=== PATIENT | male | born 1980 | race Caucasian/White ===

== ENCOUNTER 2021-01-22 14:02 | Outpatient (REF) | payer OTHER, SELFPAY ==
--- NOTE | ~2021-01-22 | XR_ITS ---
EXAMINATION: XR LUMBOSACRAL SPINE CLINICAL INFORMATION: Lower back pain. COMPARISON: None TECHNIQUE: AP and lateral views of the lumbar spine and lateral view of the lumbosacral junction. FINDINGS: The vertebral bodies and posterior elements are normal. At L5-S1, there is a 4 mm retrolisthesis and very mild disc space narrowing. The remaining disc spaces are preserved, and the vertebral alignment is normal. The paraspinal soft tissues are normal. XR/XR lumbar spine 2-3V IMPRESSION: Findings consistent with mild degenerative disc disease at L5-S1.
== END 2021-01-22 14:03 | disposition home or self-care (01) ==
LOC: HO.XRAY 14:02
PROVIDERS: PCP Internal Medicine; Visit Provider Internal Medicine
DX: M54.5 Low back pain (principal)
CPT/HCPCS: 72100

== ENCOUNTER 2021-02-04 11:05 | Outpatient (REF) | payer OTHER, SELFPAY ==
[2021-02-04 12:22] LABS: MANUAL DIFF FLAG NO
[2021-02-04 12:27] LABS: Basophils Percent Auto 0.4 % (0-2); Eosinophils Absolute Auto 0.1 X10*3/uL (0.0-0.4); Imm Gran Abs Auto 0.02 X10*3/uL (0.00-0.03); Imm Gran Pct Auto 0.3 % (0.0-0.4); Lymphocytes Percent Auto 38.8 % (20-40); Mean Corpuscular Hemoglobin 29.6 pg (27.0-33.0); Mean Platelet Volume 10.6 fL (9.4-12.4); Monocytes Absolute Auto 0.4 X10*3/uL (0.1-1.2); Monocytes Percent Auto 5.4 % (2-11); Neutrophils Absolute Auto 4.2 X10*3/uL (2.0-8.3); Neutrophils Percent Auto 54.1 % (45-73); Platelet Count 227 X10*3/uL (160-400); Red Blood Count 5.75 X10*6/uL (4.60-5.80); Red Cell Distribution Width 13.1 % (11.0-16.0); White Blood Count 7.8 X10*3/uL (4.8-10.8)
[2021-02-04 12:46] LABS: Glucose Urine UA NEG (NEG); Leukocyte Esterase Urine NEG (NEG); Nitrite Urine NEG (NEG); PH 6.5 (5.0-8.0); Specific Gravity - Urine 1.015 (1.005-1.025); Urine Blood NEG (NEG); Urine Ketones NEG (NEG); Urine Protein TRACE MG/DL (NEG-TRACE)
[2021-02-04 12:49] LABS: Appearance Urine CLEAR; Color Urine YELLOW
[2021-02-04 13:29] LABS: Erythrocyte Sedimentation Rate 2 MM/HR (0-15)
[2021-02-04 13:50] LABS: Alanine Aminotransferase 54 U/L (0-40); Albumin Level 4.5 g/dL (3.5-5.0); Alkaline Phosphatase 86 U/L (39-117); Anion Gap 12 (12-20); Aspartate Amino Transferase 36 U/L (5-37); Bilirubin Total 0.7 mg/dL (0.0-1.0); Blood Urea Nitrogen 14 mg/dL (9-16); Calcium 10.1 mg/dL (8.4-10.2); Carbon Dioxide 28 mmol/L (22-29); Chloride 104 mmol/L (96-108); Cholesterol 288 mg/dL; Estimated Glomerular Filt Rate 57; Glucose Random 91 mg/dL (60-115); Potassium 4.2 mmol/L (3.3-5.1); Sodium 140 mmol/L (135-145); Total Protein 7.4 g/dL (6.5-8.0)
[2021-02-04 14:01] LABS: TSH reflex Free T4 1.76 uIU/mL (0.32-4.0); Vitamin D 25-OH Total 19.7 ng/mL (>30)
== END 2021-02-04 11:06 | disposition home or self-care (01) ==
LOC: HO.LAB 11:05
PROVIDERS: PCP Internal Medicine; Visit Provider Internal Medicine
DX: Z00.00 Encounter for general adult medical examination without abnormal findings (principal); E66.3 Overweight; M54.5 Low back pain; E55.9 Vitamin D deficiency, unspecified
CPT/HCPCS: 36415; 80053; 81003; 82306; 82465; 84443; 85025; 85652

== ENCOUNTER 2023-08-18 09:10 | Outpatient (AMB) | payer BC, MEDICAID, SELFPAY ==
--- NOTE | 2023-08-18 11:51 | MHC.OFFWIV ---
Intake Vital Signs 08/18/23 11:56 Height 5 ft 11 in Weight 202 lb 3 oz BMI 28.2 BP 132/86 Blood Pressure Location Lt brachial Position Sitting Pulse 69 Pulse Source Pulse Oximeter Temp 98.3 F Temp Source Oral Pulse Oximetry (%) 96 Oxygen Delivery Method Room Air Intake Visit Reasons: EP, urgency with urination Intake Note: pt is here today for urgency with urination started 2 days ago with a little burning, drinking water with little urine output, feels like he has to go a lot, but only a urine comes out. Patient Tobacco Use Status: Former Tobacco user Allergies Penicillins [PENICILLINS] Allergy (Unknown, Verified 08/18/23 12:27) RASH Medication List - Last Reconciled 08/18/23 by Jf Martines MD No Known Home Meds Do you need a note to return to daycare/school/sports/work: No HPI EP, urgency with urination HPI Details 43-year-old male presents to the office for a sick visit. Patient is reporting nonspecific abdominal pain. Mostly in the groin area. He was seen at another walk-in and diagnosed with constipation 2 days ago. Patient reports he now has bowel movements, continues to have mild pain in the groin area. He is urinating small quantities. No fevers or chills. FORMERLY [facility], [facility] Medical History (Updated 01/24/21 @ 14:15 by Rashaun Murphy MD) Marijuana smoker Overweight (BMI 25.0-29.9) Low back pain Surgical History (Updated 01/24/21 @ 14:10 by Rashaun Murphy MD) No significant past surgical history Family History Maternal Grandmother Diabetes mellitus Paternal Grandmother Diabetes mellitus Social History (Updated 01/24/21 @ 14:15 by Rashaun Murphy MD) Alcohol intake: current Alcohol intake frequency: a few times a week Alcohol type: beer Patient Tobacco Use Status: Former Tobacco user Tobacco use type: Cigarette Substance Use Type: Marijuana Physical Exam Vital Signs: Last Vital Signs Temp 98.3 F 08/18/23 11:56 Pulse 69 08/18/23 11:56 BP 132/86 08/18/23 11:56 Pulse Ox 96 08/18/23 11:56 Oxygen Delivery Method Room Air 12/22/23 11:56 BMI result Body Mass Index 28.2 Const General: cooperative and healthy appearing Nutritional Appearance: well nourished Orientation/consciousness: patient oriented x3 Limitations: no limitations HEENT Head: Yes normal to inspection Eyes General: appearance normal, both eyes and all related structures Neck Neck: Yes normal visual inspection Chest Chest palpation & inspection: normal palpation of entire chest wall Resp Effort & Inspection: normal respiratory effort Neuro General: patient oriented x3 Results AMB Urinalysis, Automated UA Leukoctes 0 Chidi/uL Last Edit by Madelin Manriquez CMA on 08/18/23 11:54 UA Nitrite Negative Last Edit by Madelin Manriquez CMA on 08/18/23 11:54 UA Urobilinogen 0.2 mg/dL Last Edit by Madelin Manriquez CMA on 08/18/23 11:54 UA Protein 0 mg/dL Last Edit by Madelin Manriquez CMA on 08/18/23 11:54 UA pH 6.0 Last Edit by Madelin Manriquez CMA on 08/18/23 11:54 UA Blood 0 Maximo/uL Last Edit by Madelin Manriquez CMA on 08/18/23 11:54 UA Specific [place] 1.030 Last Edit by Madelin Manriquez CMA on 08/18/23 11:54 UA Ketone Negative Last Edit by Madelin Manriquez CMA on 08/18/23 11:54 UA Bilirubin 0 mg/dL Last Edit by Madelin Manriquez CMA on 08/18/23 11:54 UA Glucose 0 mg/dL Last Edit by Madelin Manriquez CMA on 08/18/23 11:54 Results Reviewed Results Reviewed: Laboratory Last Values Urine pH (Auto) 6.0 08/18/23 11:51 Specific [place] (Auto) 1.030 08/18/23 11:51 Urine Protein (Auto) 0 mg/dL 08/18/23 11:51 Glucose (UA)(Auto) 0 mg/dL 08/18/23 11:51 Urine Ketones (Auto) Negative 08/18/23 11:51 Urine Blood (Auto) 0 Maximo/uL 08/18/23 11:51 Urine Nitrite (Auto) Negative 08/18/23 11:51 Urine Bilirubin (Auto) 0 mg/dL 08/18/23 11:51 Urine Urobilinogen (Auto) 0.2 mg/dL 08/18/23 11:51 Leukocyte Esterase (Auto) 0 Chidi/uL 08/18/23 11:51 Assessment & Plan Assessment & Plan (1) Abdominal pain: Code(s): R10.9 - Unspecified abdominal pain Plan: Nonspecific abdominal pain is the only symptom. Urinalysis is negative. Physical exam is unremarkable. Will observe the patient. If symptoms worsen, patient was instructed to follow-up here. Orders: Orders AMB Urinalysis Automated Today R30.0 - Dysuria Coding Level of Care Code Est Pt Level 3 (48973) Diagnoses Abdominal pain R10.9
[2023-08-18 11:56] VITALS: BP 132/86; PULSE 69; TEMP 36.8; O2SAT 96; BMI 28.2
== END 2023-08-18 13:09 | disposition home or self-care (01) ==
PROVIDERS: PCP Internal Medicine; Visit Provider Internal Medicine
DX: R10.9 Unspecified abdominal pain (principal); R30.0 Dysuria
CPT/HCPCS: 81003; 99213

== ENCOUNTER 2023-11-30 10:08 | Outpatient (AMB) | payer BC, MEDICAID, SELFPAY ==
[2023-11-30 10:10] VITALS: BP 120/64; PULSE 63; O2SAT 98; BMI 29.0
--- NOTE | 2023-11-30 10:10 | A.OFFPC_ITS ---
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 Accompanied by: Significant Other Allergies Penicillins [PENICILLINS] Allergy (Unknown, Verified 03/12/24 11:52) RASH Medication List - Last Reconciled 11/30/23 by Rashaun Murphy MD No Known Home Meds Tobacco use date assessed: 11/30/23 Dental Screening Dental Screen Date: 11/30/23 Did you have a dental visit in the last 12 months?: Yes Did you have a dental problem in the last 6 months where you did not have access to dental care?: No Was dental information given to patient?: Patient has dentist HPI Physical Exam HPI Details Patient comes in today for his annual physical examination - was last seen by me over 2 years ago on 01/22/2021 Patient states that he feels okay He denies any headaches or dizziness Denies any chest pains, no SOB No nausea/vomiting, reports (+) on and off vague/mild diffuse abdominal pain and discomfort, more often over the RLQ area No change in bowel habits noted He denies any acute urinary symptoms [facility] Medical History (Updated 03/12/24 @ 12:12 by Rashaun Murphy MD) Lumbar degenerative disc disease Vitamin D deficiency Impaired fasting glucose Elevated LFTs Mixed hyperlipidemia Marijuana smoker Overweight (BMI 25.0-29.9) Low back pain Surgical History No significant past surgical history Family History Maternal Grandmother Diabetes mellitus Paternal Grandmother Diabetes mellitus Social History Housing: Apartment Alcohol intake: current Alcohol intake frequency: a few times a week Alcohol type: beer Patient Tobacco Use Status: Former Tobacco user Tobacco use type: Cigarette e-Cigarette/Vaping Use: Never Used Second Hand Smoke Exposure: Yes Substance Use Type: Marijuana service: No Current occupational status: employed Cognitive needs: No Hearing needs: No Vision needs: No Questionnaire PHQ-9 Over the last 2 weeks, how often have you been bothered by any of the following problems? 1. Little interest or pleasure in doing things: not at all 2. Feeling down, depressed, or hopeless: not at all 3. Trouble falling or staying asleep, or sleeping too much: not at all 4. Feeling tired or having little energy: not at all 5. Poor appetite or overeating: not at all 6. Feeling bad about yourself - or that you are a failure or have let yourself or your family down: not at all 7. Trouble concentrating on things, such as reading the newspaper or watching television: not at all 8. Moving or speaking so slowly that other people could have noticed. Or the opposite - being so fidgety or restless that you have been moving around a lot more than usual: not at all 9. Thoughts that you would be better off or of hurting yourself in some way: not at all Total score: 0 Depression Screening Interpretation: Negative Depression Screening Done: Yes 59418 - PHQ-9 Billing: Yes Source: Developed by Drs. Alexy Mayberry, Roro Fair, Chato Veras and colleagues, with an educational ralph from [employer]. Thrive Questionnaire Date Thrive assessed: 11/30/23 I am a: Patient What is your living situation today?: I have a steady place to live Within the past 12 months, did the food you bought not last and you didn't have the money to get more?: Never true Within the past 12 months, did you worry whether your food would run out before you got money to buy more?: Never true Do you have trouble paying for medicines?: No Do you have trouble getting transportation to medical appointments?: No Do you have trouble paying your heating and electricity bill?: No Do you have trouble taking care of your child, family member or friend?: No Do you have trouble with day-to-day activities such as bathing, preparing meals, shopping, managing finances, etc.?: No Are you currently unemployed and looking for a job?: No Are you interested in more education?: No Please select the resources that you would like help with: None Currently or been in a relationship where the following occur: no concerns reported THRIVE Score: 0 AUDIT C Alcohol Use Questionnaire (AUDIT-C) 1. How often do you have a drink containing alcohol?: 2-4 times a month 2. How many drinks containing alcohol do you have on a typical day when you are drinking?: 1 or 2 3. How often do you have six or more drinks on one occasion?: Never Total Score: 2 Score Reviewed/Action Taken: Yes MICHELLE-7 AMB Questionnaire MICHELLE-7 Date MICHELLE - 7 assessed: 11/30/23 Feeling nervous, anxious, or on edge: 0 = Not at all Not being able to stop or control worryin = Not at all Worrying too much about different things: 0 = Not at all Trouble relaxin = Not at all Being so restless that it is hard to sit still: 0 = Not at all Becoming easily annoyed or irritable: 0 = Not at all Feeling afraid as if something awful might happen: 0 = Not at all Total MICHELLE-7 score (0-4 normal; 5-9 mild; 10-14 moderate; 15-21 severe): 0 Source: Developed by Drs. Alexy Mayberry, oRro Fair, Chato Veras and colleagues, with an educational ralph from [employer]. Review of Systems Const Denies chills, Denies fatigue, Denies fever(s), Denies headache(s), Denies malaise and Denies weakness Eyes Denies blurry vision, Denies change in vision, Denies irritation and Denies itchy eyes ENT Denies dysphagia, Denies dizziness, Denies otalgia, Denies headache(s), Denies nasal congestion, Denies neck pain, Denies odynophagia and Denies sore throat Card Denies chest pain, Denies rapid heart rate, Denies irregular heart rhythm, Denies palpitations and Denies dyspnea Resp Denies chest congestion, Denies cough, Denies dyspnea and Denies wheezing GI Reports abdominal pain (on and off over the RLQ area), Denies bloating, Denies constipation, Denies dysphagia, Denies heartburn, Denies diarrhea, Denies nausea, Denies odynophagia and Denies vomiting Denies hematuria, Denies difficulty urinating, Denies dysuria, Denies urinary frequency and Denies urinary urgency Musc Reports back pain (on and off, mild), Denies arthralgias, Denies joint swelling, Denies muscle weakness and Denies neck pain Skin/Breast Denies change in pigmentation, Denies lesions, Denies rash and Denies unusual bruising Neuro Denies dizziness, Denies headache(s), Denies paresthesias and Denies weakness Endo Denies fatigue and Denies palpitations Aller/Immun Denies itchy eyes and Denies wheezing Physical exam (Primary Care) Vital Signs: Last Vital Signs Pulse 63 11/30/23 10:10 BP 120/64 11/30/23 10:10 Pulse Ox 98 11/30/23 10:10 Oxygen Delivery Method Room Air 11/30/23 10:10 BMI result Body Mass Index 29.0 Tobacco/Smoking Status: Tobacco use Status Tobacco use date assessed 11/30/23 11/30/23 10:12 Patient Tobacco Use Status Former Tobacco user 11/30/23 10:12 Tobacco use type Cigarette 11/30/23 10:12 e-Cigarette/Vaping Use Never Used 11/30/23 10:12 PHQ-9: PHQ-9 Score PHQ-9: Total score 0 03/12/24 10:36 Depression Screening Interpretation: Negative Thrive Assessment: Date of Thrive Assessment Date Thrive assessed 11/30/23 11/30/23 10:12 Currently or been in a relationship where the following occur: no concerns reported Const General: no acute distress, alert and awake Orientation/consciousness: patient oriented x3 HENMT Head: Yes normocephalic and Yes atraumatic Ears: external ears normal, TM's normal bilaterally and EAC's normal General nose exam: No nasal discharge present Face and sinus: Yes normal facial exam and Yes sinuses nontender Teeth and gingiva: dentition normal Throat: Yes posterior oropharynx normal and Yes tonsils normal (no TP congestion) Eyes Eyelids: Yes eyelids normal Conjunctivae: conjunctivae normal Pupils: Equal, round and reactive pupils present EOM: EOMs intact bilaterally Neck Neck: Yes no lymphadenopathy and Yes supple Thyroid: Thyroid normal Resp Auscultation: clear to auscultation bilaterally, no rales and no wheezes Cardio Rate: regular rate Rhythm: regular rhythm Heart sounds: no murmurs GI Palpation (GI): Soft to palpation, nontender and No hepatosplenomegaly present Auscultation: normal bowel sounds General: Yes no CVA tenderness Back/Spine/Pelvis Back: no CVA tenderness Thoracic/Lumbar Spine: lumbar spinal tenderness (mild) Skin Lesions: no lesions Rashes: no rashes Neuro General: patient oriented x3, moves all extremities, no focal motor deficits and CN's II-XI intact bilaterally Cranial nerves: Yes Equal, round and reactive pupils present Cognition (Neuro): normal cognition Gait exam (Neuro): Normal gait present Extrem General: Yes no clubbing, cyanosis or edema Assessment and Plan Assessment & Plan (1) Annual physical exam: Code(s): Z00.00 - Encounter for general adult medical examination without abnormal findings Plan: Check labs (2) Mixed hyperlipidemia: Code(s): E78.2 - Mixed hyperlipidemia Plan: Reinforced low cholesterol diet Have reminded patient that his total (random) cholesterol level was elevated at 288 mg/dl when checked in 2020 - we have never been able to get him to do a fasting lipids since for further evaluation Will check his fasting lipids and labs now YVES for follow up (3) Elevated LFTs: Code(s): R79.89 - Other specified abnormal findings of blood chemistry Plan: His ALT was elevated on his labs done back in 2020 but his serum AST level was normal This may be mostly related to his weight but patient also admits to drinking beer often Will recheck his LFTs for follow up (4) Bilateral lower abdominal discomfort: Code(s): R10.31 - Right lower quadrant pain; R10.32 - Left lower quadrant pain Plan: Suspect constipation as a likely source of his vague abdominal complaints although patient states that he moves his bowels regularly Will send him for abdominal x-rays for further evaluation (5) Lumbar degenerative disc disease: Code(s): M51.36 - Other intervertebral disc degeneration, lumbar region Plan: Reinforced activity and weight-lifting restrictions to avoid aggravating his lower back Lumbar spine x-rays done back in 2020 revealed (+) findings consistent with mild degenerative disc disease at L5-S1 (6) Overweight (BMI 25.0-29.9): Code(s): E66.3 - Overweight Plan: Reinforced diet/exercise as tolerated/lose weight Plan Follow up in 3 months Orders: Orders Complete Blood Count Auto Diff 12/01/23 D64.9 - Anemia, unspecified, Z00.00 - Encounter for general adult medical examination without abnormal findings Comprehensive [place]. Panel Fast 12/01/23 E78.00 - Pure hypercholesterolemia, unspecified, Z00.00 - Encounter for general adult medical examination without abnormal findings UA CC w/rflx Micro + Cult 12/01/23 R30.0 - Dysuria, Z00.00 - Encounter for general adult medical examination without abnormal findings Vitamin D 25-OH Total 12/01/23 E55.9 - Vitamin D deficiency, unspecified, Z00.00 - Encounter for general adult medical examination without abnormal findings Lipid Panel 12/01/23 E78.00 - Pure hypercholesterolemia, unspecified, Z00.00 - Encounter for general adult medical examination without abnormal findings TSH reflex Free T4 12/01/23 E78.00 - Pure hypercholesterolemia, unspecified, Z00.00 - Encounter for general adult medical examination without abnormal findings Gamma Glutamyl Transpeptidase 12/01/23 R79.89 - Other specified abnormal findings of blood chemistry, Z00.00 - Encounter for general adult medical examination without abnormal findings Coding Level of Care Code Est Pt Prev Care 40-64y(03406) Diagnoses Annual physical exam Z00.00 Mixed hyperlipidemia E78.2 Elevated LFTs R79.89 Bilateral lower abdominal discomfort R10.31; R10.32 Lumbar degenerative disc disease M51.36 Overweight (BMI 25.0-29.9) E66.3
== END 2023-11-30 11:08 | disposition home or self-care (01) ==
PROVIDERS: PCP Internal Medicine; Visit Provider Internal Medicine
DX: Z00.00 Encounter for general adult medical examination without abnormal findings (principal); E78.2 Mixed hyperlipidemia; R79.89 Other specified abnormal findings of blood chemistry; R10.31 Right lower quadrant pain; R10.32 Left lower quadrant pain; M51.36 Other intervertebral disc degeneration, lumbar region; E66.3 Overweight
CPT/HCPCS: 99499

== ENCOUNTER 2023-12-01 09:00 | Outpatient (REF) | payer BC, MEDICAID, SELFPAY ==
--- NOTE | ~2023-12-01 | XR_ITS ---
EXAMINATION: XR ABDOMEN COMPLETE CLINICAL INDICATION: Right lower quadrant pain, patient states pain comes and goes. COMPARISON: Radiograph lumbar spine of 01/22/2021. TECHNIQUE: 5 views of the abdomen. FINDINGS: Moderate amount of stool in the colon. Gas is scattered throughout the right and transverse colon. There is a paucity of gas in the distal colon. A few prominent nonspecific air-filled loops of small bowel are seen predominantly in the left upper quadrant. XR/XR abdomen min 2V IMPRESSION: Moderate amount of stool in the colon. Gas is scattered throughout the right and transverse colon. There is a paucity of gas in the distal colon. A few prominent nonspecific air-filled loops of small bowel are seen predominantly in the left upper quadrant.
[2023-12-01 09:35] LABS: MANUAL DIFF FLAG NO
[2023-12-01 09:50] LABS: Basophils Percent Auto 0.6 % (0-2); Eosinophils Absolute Auto 0.1 X10*3/uL (0.0-0.4); Eosinophils Percent Auto 0.8 % (0-4); Hematocrit 50.2 % (42.0-52.0); Hemoglobin 17.5 g/dl (14.0-18.0); Imm Gran Abs Auto 0.02 X10*3/uL (0.00-0.03); Imm Gran Pct Auto 0.3 % (0.0-0.4); Lymphocytes Absolute Auto 3.3 X10*3/uL (1.2-4.9); Lymphocytes Percent Auto 46.4 % (20-40); Mean Corpuscular HGB Conc 34.9 g/dl (31.0-36.0); Mean Corpuscular Hemoglobin 30.3 pg (27.0-33.0); Mean Corpuscular Volume 86.9 fL (80.0-98.0); Mean Platelet Volume 10.4 fL (9.4-12.4); Monocytes Absolute Auto 0.4 X10*3/uL (0.1-1.2); Neutrophils Absolute Auto 3.3 x10*3/uL (2.0-8.3); Neutrophils Percent Auto 45.9 % (45-73); Platelet Count 226 X10*3/uL (160-400); Red Blood Count 5.78 X10*6/uL (4.60-5.80); Red Cell Distribution Width 13.3 % (11.0-16.0); White Blood Count 7.2 X10*3/uL (4.8-10.8)
[2023-12-01 11:23] LABS: Alanine Aminotransferase 69 U/L (0-40); Albumin Level 4.5 g/dL (3.5-5.0); Alkaline Phosphatase 71 U/L (39-117); Anion Gap 13 (12-20); Aspartate Amino Transferase 39 U/L (5-37); Bilirubin Total 0.6 mg/dL (0.0-1.0); Blood Urea Nitrogen 13 mg/dL (9-16); Calcium 9.6 mg/dL (8.4-10.2); Carbon Dioxide 29 mmol/L (22-29); Chloride 104 mmol/L (96-108); Cholesterol 315 mg/dL (<200); Estimated Glomerular Filt Rate > 60; Glucose Fasting 107 mg/dL (60-99); HDL Cholesterol 45 mg/dL (>40); LDL Cholesterol Calculated 218 mg/dL (<100); Sodium 142 mmol/L (135-145); Total Protein 7.5 g/dL (6.5-8.0); Triglycerides 264 mg/dL (<150)
[2023-12-01 11:28] LABS: TSH reflex Free T4 1.64 uIU/mL (0.32-4.0); Vitamin D 25-OH Total 14.7 ng/mL (>30)
[2023-12-01 11:44] LABS: Appearance Urine Clear; Color Urine Yellow; Glucose Urine UA Negative (Negative); Leukocyte Esterase Urine Negative (Negative); Nitrite Urine Negative (Negative); PH 6.5 (5.0-9.0); Urine Blood Negative (Negative); Urine Ketones Negative (Negative); Urine Protein Negative (Neg-Trace)
[2023-12-01 12:01] LABS: Gamma Glutamyl Transpeptidase 82 U/L (11-51)
== END 2023-12-01 09:01 | disposition home or self-care (01) ==
LOC: HO.LAB 09:00
PROVIDERS: PCP Internal Medicine; Visit Provider Internal Medicine
DX: Z00.00 Encounter for general adult medical examination without abnormal findings (principal); E78.00 Pure hypercholesterolemia, unspecified; R30.0 Dysuria; E55.9 Vitamin D deficiency, unspecified; R79.89 Other specified abnormal findings of blood chemistry; D64.9 Anemia, unspecified
CPT/HCPCS: 36415; 74019; 80053; 80061; 81003; 82306; 82977; 84443; 85025

== ENCOUNTER 2024-03-12 09:52 | Outpatient (AMB) | payer BC, MEDICAID, SELFPAY ==
--- NOTE | 2024-03-12 09:56 | MHC.PC.OV ---
Vital Signs 03/12/24 09:57 Height 5 ft 11 in Weight 201 lb 6 oz BMI 28.1 BP 110/78 Blood Pressure Location Lt brachial Position Sitting Pulse 65 Pulse Source Pulse Oximeter Pulse Oximetry (%) 97 Oxygen Delivery Method Room Air Intake Visit Reasons: 3mof\u Intake Note: Patient is here to follow up on Low back pain. Acupressure Therapist Required: No Jewelry Department Supervisor: Present ( and dependant child) Accompanied by: Spouse Allergies Penicillins [PENICILLINS] Allergy (Unknown, Verified 03/12/24 11:52) RASH Medication List - Last Reconciled 03/12/24 by Rashaun Murphy MD cholecalciferol (vitamin D3) 50 mcg PO DAILY 90 days Tobacco use date assessed: 03/12/24 Dental Screening Dental Screen Date: 11/30/23 HPI 3mof\u HPI Details Patient comes in today for his follow up visit States that he feels okay He denies any headaches or dizziness Denies any chest pains, no SOB No nausea/vomiting, no abdominal pain No change in bowel habits noted Would like to know how he did on his labs done back in November 2023 [facility] Medical History (Updated 03/12/24 @ 12:12 by Rashaun Murphy MD) Lumbar degenerative disc disease Vitamin D deficiency Impaired fasting glucose Elevated LFTs Mixed hyperlipidemia Marijuana smoker Overweight (BMI 25.0-29.9) Low back pain Surgical History No significant past surgical history Family History Maternal Grandmother Diabetes mellitus Paternal Grandmother Diabetes mellitus Social History Housing: Apartment Alcohol intake: current Alcohol intake frequency: a few times a week Alcohol type: beer Patient Tobacco Use Status: Former Tobacco user Tobacco use type: Cigarette e-Cigarette/Vaping Use: Never Used Second Hand Smoke Exposure: Yes Substance Use Type: Marijuana service: No Current occupational status: employed Cognitive needs: No Hearing needs: No Vision needs: No Questionnaire Thrive Questionnaire Date Thrive assessed: 11/30/23 MICHELLE-7 AMB Questionnaire MICHELLE-7 Date MICHELLE - 7 assessed: 11/30/23 Source: Developed by Drs. Alexy Mayberry, Roro Fair, Chato Veras and colleagues, with an educational ralph from [employer]. Review of Systems Const Denies chills, Denies fatigue, Denies fever(s) and Denies headache(s) ENT Denies dysphagia, Denies dizziness, Denies otalgia, Denies headache(s), Denies neck pain, Denies odynophagia and Denies sore throat Card Denies chest pain, Denies palpitations and Denies dyspnea Resp Denies cough and Denies dyspnea GI Reports abdominal pain (occasionally, mostly over the RLQ area), Denies constipation, Denies dysphagia, Denies heartburn, Denies diarrhea, Denies nausea, Denies odynophagia and Denies vomiting Denies dysuria, Denies nocturia and Denies urinary frequency Musc Reports back pain (on and off, over the lower back) and Denies neck pain Skin/Breast Denies rash Neuro Denies dizziness and Denies headache(s) Endo Denies fatigue and Denies palpitations Physical exam (Primary Care) Vital Signs: Last Vital Signs Pulse 65 03/12/24 09:57 BP 110/78 03/12/24 09:57 Pulse Ox 97 03/12/24 09:57 Oxygen Delivery Method Room Air 03/12/24 09:57 BMI result Body Mass Index 28.1 Tobacco/Smoking Status: Tobacco use Status Tobacco use date assessed 03/12/24 03/12/24 10:01 Patient Tobacco Use Status Former Tobacco user 03/12/24 10:01 Tobacco use type Cigarette 03/12/24 10:01 e-Cigarette/Vaping Use Never Used 03/12/24 10:01 Thrive Assessment: Date of Thrive Assessment Date Thrive assessed 11/30/23 03/12/24 10:01 Const General: no acute distress and alert HENMT Ears: TM's normal bilaterally and EAC's normal Throat: Yes posterior oropharynx normal and Yes tonsils normal (no TP congestion) Neck Neck: Yes no lymphadenopathy and Yes supple Thyroid: Thyroid normal Resp Auscultation: clear to auscultation bilaterally, no rales and no wheezes Cardio Rate: regular rate Rhythm: regular rhythm Heart sounds: no murmurs GI Palpation (GI): Soft to palpation and nontender Auscultation: normal bowel sounds General: Yes no CVA tenderness Back/Spine/Pelvis Back: no CVA tenderness Thoracic/Lumbar Spine: lumbar spinal tenderness (mild) Skin Rashes: no rashes Extrem General: Yes no clubbing, cyanosis or edema Results Reviewed Results Reviewed: Laboratory Tests 02/04/21 12/01/23 12/01/23 11:45 09:30 09:32 WBC 7.2 Hgb 17.5 Hct 50.2 Plt Count 226 Sodium 142 Potassium 4.0 Creatinine 1.20 Estimated GFR > 60 Fasting Glucose 107 H Calcium 9.6 GGT 82 H AST 39 H ALT 69 H Cholesterol 288 315 H Triglycerides 264 H LDL Cholesterol, Calc 218 H HDL Cholesterol 45 25-OH Vitamin D Total 14.7 L TSH 1.64 Ur Specific Vivian 1.020 Urine Protein Negative Urine Glucose (UA) Negative Urine Blood Negative Urine Nitrite Negative Ur Leukocyte Esterase Negative Assessment and Plan Assessment & Plan (1) Mixed hyperlipidemia: Code(s): E78.2 - Mixed hyperlipidemia Plan: Results of his labs done back in November 2023 reviewed and discussed with patient and his , who is in here with him today - they are advised that his cholesterol levels are elevated and are higher than they were back in 2020 Discussed low cholesterol diet - low cholesterol diet info provided from the office today Will have him recheck his labs and fasting lipids in 3 months for follow up - is advised that if he cannot get his cholesterol levels improved significantly over the next few months, then we may need to consider starting him on cholesterol-lowering medications then (2) Elevated LFTs: Code(s): R79.89 - Other specified abnormal findings of blood chemistry Plan: He is also cautioned that his LFTs are again elevated on his recent labs - likely due to steatohepatitis He has the same issue a few years ago in 2020 but this time, both his AST and ALT are elevated He admits to drinking alcohol often and he is advised to try cutting back on his alcohol intake to help with his LFTs Have also advised him to avoid taking any Tylenol-containing meds as much as possible and that losing some weight can also help with his LFTs If his LFTs do not improve over the next few months, will need to get an abdominal US for further evaluation (3) Impaired fasting glucose: Code(s): R73.01 - Impaired fasting glucose Plan: He is advised that his FBS was slightly elevated on his recent labs at 107 mg/dl If this persists, will need to check his HgbA1c for further evaluation as he has (+) family Hx of diabetes Discussed low calorie/low carb diet Will recheck his FBS in 3 months for follow up; will also check his HgbA1c then for further evaluation (4) Vitamin D deficiency: Code(s): E55.9 - Vitamin D deficiency, unspecified Plan: He is advised that his Vitamin D level was low on his recent labs Will start him on Vitamin D3 2000 units QD - he is advised that he can get this OTC if his insurance will not cover this Rx (5) Lumbar degenerative disc disease: Code(s): M51.36 - Other intervertebral disc degeneration, lumbar region Plan: Reinforced activity and weight-lifting restrictions to avoid aggravating his lower back Lumbar spine x-rays done back in 2020 revealed (+) findings consistent with mild degenerative disc disease at L5-S1 (6) Constipation: Code(s): K59.00 - Constipation, unspecified Qualifiers: Constipation type: unspecified constipation type Qualified Code(s): K59.00 - Constipation, unspecified Plan: Patient states that he still has on and off vague abdominal pains, most often over the RLQ area Abdominal x-rays done a few months ago revealed findings suggestive of constipation - (+) moderate amount of stool in the colon, with gas scattered throughout the right and transverse colon Have encouraged patient to increase his oral fluid and dietary fiber intake Can also take OTC stool softeners as needed for now (7) Overweight (BMI 25.0-29.9): Code(s): E66.3 - Overweight Plan: Reinforced diet/exercise as tolerated/lose weight Plan Follow up in 3 months Orders: Orders Comprehensive [place]. Panel Fast 3 Months E78.00 - Pure hypercholesterolemia, unspecified Lipid Panel 3 Months E78.00 - Pure hypercholesterolemia, unspecified Vitamin D 25-OH Total 3 Months E55.9 - Vitamin D deficiency, unspecified Hemoglobin A1c 3 Months E11.9 - Type 2 diabetes mellitus without complications Complete Blood Count Auto Diff 3 Months D64.9 - Anemia, unspecified UA CC w/rflx Micro + Cult 3 Months R30.0 - Dysuria Medications: New cholecalciferol (vitamin D3) 50 mcg PO DAILY 90 days 90 caps 3RF E55.9 - Vitamin D deficiency, unspecified Coding Level of Care Code Est Pt Level 4 (95897) Diagnoses Mixed hyperlipidemia E78.2 Elevated LFTs R79.89 Impaired fasting glucose R73.01 Vitamin D deficiency E55.9 Lumbar degenerative disc disease M51.36 Constipation, unspecified constipation type K59.00 Constipation type: unspecified constipation type Overweight (BMI 25.0-29.9) E66.3
[2024-03-12 09:57] VITALS: BP 110/78; PULSE 65; O2SAT 97; BMI 28.1
== END 2024-03-12 10:44 | disposition home or self-care (01) ==
PROVIDERS: PCP Internal Medicine; Visit Provider Internal Medicine
DX: E78.2 Mixed hyperlipidemia (principal); R79.89 Other specified abnormal findings of blood chemistry; R73.01 Impaired fasting glucose; E55.9 Vitamin D deficiency, unspecified; M51.36 Other intervertebral disc degeneration, lumbar region; K59.00 Constipation, unspecified; E66.3 Overweight
CPT/HCPCS: 99214

== ENCOUNTER 2024-07-03 08:57 | Outpatient (AMB) | payer BC, MEDICAID, SELFPAY ==
[2024-07-03 09:01] VITALS: BP 120/86; PULSE 66; O2SAT 98; BMI 28.1
--- NOTE | 2024-07-03 09:01 | MHC.PC.OV ---
Vital Signs 07/03/24 09:01 Height 5 ft 11 in Weight 201 lb 8 oz BMI 28.1 BP 120/86 Blood Pressure Location Lt brachial Position Sitting Pulse 66 Pulse Source Pulse Oximeter Pulse Oximetry (%) 98 Oxygen Delivery Method Room Air Intake Visit Reasons: 3 Month F/U Social Work Msw Required: No Accompanied by: Self / Same As Patient Allergies Penicillins [PENICILLINS] Allergy (Unknown, Verified 07/03/24 09:40) RASH Medication List - Last Reconciled 07/03/24 by Rashaun Murphy MD cholecalciferol (vitamin D3) 50 mcg PO DAILY 90 days Tobacco use date assessed: 07/03/24 Dental Screening Dental Screen Date: 07/03/24 Did you have a dental visit in the last 12 months?: Yes Did you have a dental problem in the last 6 months where you did not have access to dental care?: No Was dental information given to patient?: Patient has dentist HPI 3 Month F/U HPI Details Patient comes in today for his follow up visit States that he feels okay He denies any headaches or dizziness Denies any chest pains, no SOB No nausea/vomiting, no abdominal pain No change in bowel habits noted He was not able to get his follow up labs done prior to coming in today - he apparently forgot that he had to go to the lab to get them done at this time [facility] Medical History Lumbar degenerative disc disease Vitamin D deficiency Impaired fasting glucose Elevated LFTs Mixed hyperlipidemia Marijuana smoker Overweight (BMI 25.0-29.9) Low back pain Surgical History No significant past surgical history Family History Maternal Grandmother Diabetes mellitus Paternal Grandmother Diabetes mellitus Social History Housing: Apartment Alcohol intake: current Alcohol intake frequency: a few times a week Alcohol type: beer Patient Tobacco Use Status: Former Tobacco user Tobacco use type: Cigarette e-Cigarette/Vaping Use: Never Used Second Hand Smoke Exposure: Yes Substance Use Type: Marijuana service: No Current occupational status: employed Cognitive needs: No Hearing needs: No Vision needs: No Questionnaire PHQ-9 Over the last 2 weeks, how often have you been bothered by any of the following problems? 1. Little interest or pleasure in doing things: not at all 2. Feeling down, depressed, or hopeless: not at all 3. Trouble falling or staying asleep, or sleeping too much: not at all 4. Feeling tired or having little energy: not at all 5. Poor appetite or overeating: not at all 6. Feeling bad about yourself - or that you are a failure or have let yourself or your family down: not at all 7. Trouble concentrating on things, such as reading the newspaper or watching television: not at all 8. Moving or speaking so slowly that other people could have noticed. Or the opposite - being so fidgety or restless that you have been moving around a lot more than usual: not at all 9. Thoughts that you would be better off or of hurting yourself in some way: not at all Total score: 0 Depression Screening Interpretation: Negative Depression Screening Done: Yes 90164 - PHQ-9 Billing: Yes Source: Developed by Drs. Alexy Mayberry, Roro Fair, Chato Veras and colleagues, with an educational ralph from [email or web address]). Thrive Questionnaire Date Thrive assessed: 07/03/24 I am a: Patient What is your living situation today?: I have a steady place to live Within the past 12 months, did the food you bought not last and you didn't have the money to get more?: Never true Within the past 12 months, did you worry whether your food would run out before you got money to buy more?: Never true Do you have trouble paying for medicines?: No Do you have trouble getting transportation to medical appointments?: No Do you have trouble paying your heating and electricity bill?: No Do you have trouble taking care of your child, family member or friend?: No Do you have trouble with day-to-day activities such as bathing, preparing meals, shopping, managing finances, etc.?: No Are you currently unemployed and looking for a job?: No Are you interested in more education?: No Please select the resources that you would like help with: None Currently or been in a relationship where the following occur: No concerns reported THRIVE Score: 0 AUDIT C Alcohol Use Questionnaire (AUDIT-C) 1. How often do you have a drink containing alcohol?: 2-4 times a month 2. How many drinks containing alcohol do you have on a typical day when you are drinking?: 1 or 2 3. How often do you have six or more drinks on one occasion?: Never Total Score: 2 Score Reviewed/Action Taken: Yes MICHELLE-7 AMB Questionnaire MICHELLE-7 Date MICHELLE - 7 assessed: 07/03/24 Feeling nervous, anxious, or on edge: 0 = Not at all Not being able to stop or control worryin = Not at all Worrying too much about different things: 0 = Not at all Trouble relaxin = Not at all Being so restless that it is hard to sit still: 0 = Not at all Becoming easily annoyed or irritable: 0 = Not at all Feeling afraid as if something awful might happen: 0 = Not at all Total MICHELLE-7 score (0-4 normal; 5-9 mild; 10-14 moderate; 15-21 severe): 0 Source: Developed by Drs. Alexy Mayberry, Roro Fair, Chato Veras and colleagues, with an educational ralph from [employer] ([email or web address]). Review of Systems Const Denies chills, Denies fatigue, Denies fever(s) and Denies headache(s) ENT Denies dysphagia, Denies dizziness, Denies otalgia, Denies headache(s), Denies neck pain, Denies odynophagia and Denies sore throat Card Denies chest pain, Denies palpitations and Denies dyspnea Resp Denies chest congestion, Denies cough and Denies dyspnea GI Denies abdominal pain, Denies constipation, Denies dysphagia, Denies heartburn, Denies diarrhea, Denies nausea, Denies odynophagia and Denies vomiting Denies dysuria, Denies nocturia and Denies urinary frequency Musc Reports back pain (on and off, over the lower back) and Denies neck pain Skin/Breast Denies rash Neuro Denies dizziness and Denies headache(s) Endo Denies fatigue and Denies palpitations Physical exam (Primary Care) Vital Signs: Last Vital Signs Pulse 66 07/03/24 09:01 BP 120/86 07/03/24 09:01 Pulse Ox 98 11/06/24 09:01 Oxygen Delivery Method Room Air 07/03/24 09:01 BMI result Body Mass Index 28.1 Tobacco/Smoking Status: Tobacco use Status Tobacco use date assessed 07/03/24 07/03/24 09:08 Patient Tobacco Use Status Former Tobacco user 07/03/24 09:08 Tobacco use type Cigarette 07/03/24 09:08 e-Cigarette/Vaping Use Never Used 07/03/24 09:08 PHQ-9: PHQ-9 Score PHQ-9: Total score 0 07/03/24 09:09 Depression Screening Interpretation: Negative Thrive Assessment: Date of Thrive Assessment Date Thrive assessed 07/03/24 07/03/24 09:08 Currently or been in a relationship where the following occur: No concerns reported Const General: no acute distress and alert HENMT Ears: TM's normal bilaterally and EAC's normal Throat: Yes posterior oropharynx normal and Yes tonsils normal (no TP congestion) Neck Neck: Yes no lymphadenopathy and Yes supple Thyroid: Thyroid normal Resp Auscultation: clear to auscultation bilaterally, no rales and no wheezes Cardio Rate: regular rate Rhythm: regular rhythm Heart sounds: no murmurs GI Palpation (GI): Soft to palpation and nontender Auscultation: normal bowel sounds General: Yes no CVA tenderness Back/Spine/Pelvis Back: no CVA tenderness Thoracic/Lumbar Spine: lumbar spinal tenderness (mild) Skin Rashes: no rashes Extrem General: Yes no clubbing, cyanosis or edema Office Procedures Flu Questionnaire Does the patient have a severe egg allergy?: No Immunizations Fluarix Triv [id number] (PF) 45 mcg (15 mcg x 3)/0.5 mL IM syringe Performing Provider: Rashaun Murphy MD [facility] Documented (not given) by: JOANIE Coppola on 07/03/24 09:09 Reason Not Given: Patient Refused Coding Level of Care Code Est Pt Level 3 (62865) Diagnoses Mixed hyperlipidemia E78.2 Elevated LFTs R79.89 Impaired fasting glucose R73.01 Vitamin D deficiency E55.9 Degeneration of intervertebral disc of lumbar region with discogenic back pain M51.360 Disc-related pain type: discogenic back pain only Constipation, unspecified constipation type K59.00 Constipation type: unspecified constipation type Overweight (BMI 25.0-29.9) E66.3 Additional Codes PHQ-9 - 55478 - PHQ-9 Billing: Yes ([id number]) Assessment & Plan Assessment & Plan (1) Mixed hyperlipidemia: Code(s): E78.2 - Mixed hyperlipidemia Category: Medical Plan: Patient was not able to get his follow up labs done prior to coming in for his office visit today - as he has not yet eaten anything this morning, have instructed him to go and get his labs done now after he leaves the office and we will reach out to him with further instructions once his results are available to us to review Reinforced low cholesterol diet - patient states that he has tried following this but admits that he has not done so as consistently as he should sometimes Have reminded him of our discussion a few months ago that if his cholesterol numbers have not yet improved significantly at this time, then we will need to consider starting him on some Rx to help get his cholesterol numbers lower Will again have him recheck his labs and fasting lipids in 3 months for follow up, especially if he is started on cholesterol Rx in the next couple of days (2) Elevated LFTs: Code(s): R79.89 - Other specified abnormal findings of blood chemistry Category: Medical Plan: He is again cautioned that his LFTs were quite elevated on his previous labs (likely due to steatohepatitis) and if his LFTs have not improved currently, then he will need to get an abdominal US for further evaluation - we will see how his numbers are once he gets his labs done today He had the same issue a few years ago in 2020 and he admits to drinking alcohol often - he has been advised to try cutting back on his alcohol intake at his last visit We have also advised him to avoid taking any Tylenol-containing meds as much as possible and that losing some weight can also help with his LFTs We will continue to monitor his LFTs regularly (3) Impaired fasting glucose: Code(s): R73.01 - Impaired fasting glucose Category: Medical Plan: His FBS was also slightly elevated on his previous labs at 107 mg/dl, and we will see how it is now, as well as his HgbA1c, as he has mentioned a strong family Hx of diabetes previously Reinforced low calorie/low carb diet Will recheck his FBS and HgbA1c again in 3 months for follow up (4) Vitamin D deficiency: Code(s): E55.9 - Vitamin D deficiency, unspecified Category: Medical Plan: Continue Vitamin D3 2000 units QD (5) Lumbar degenerative disc disease: Code(s): M51.36 - Other intervertebral disc degeneration, lumbar region Category: Medical Qualifiers: Disc-related pain type: discogenic back pain only Qualified Code(s): M51.360 - Other intervertebral disc degeneration, lumbar region with discogenic back pain only Plan: Reinforced activity and weight-lifting restrictions to avoid aggravating his lower back Lumbar spine x-rays done back in 2020 revealed (+) findings consistent with mild degenerative disc disease at L5-S1 (6) Constipation: Code(s): K59.00 - Constipation, unspecified Category: Medical Qualifiers: Constipation type: unspecified constipation type Qualified Code(s): K59.00 - Constipation, unspecified Plan: Patient states that his abdominal symptoms have improved somewhat from previous with increase his oral fluid and dietary fiber intake Abdominal x-rays done a few months ago revealed findings suggestive of constipation - (+) moderate amount of stool in the colon, with gas scattered throughout the right and transverse colon Continue OTC stool softeners as needed (7) Overweight (BMI 25.0-29.9): Code(s): E66.3 - Overweight Category: Medical Plan: Reinforced diet/exercise as tolerated/lose weight Plan Follow up in 3 months Orders: Orders Influenza [id number] Immunization Today Z23 - Encounter for immunization Comprehensive [place]. Panel Fast 3 Months E78.00 - Pure hypercholesterolemia, unspecified Lipid Panel 3 Months E78.00 - Pure hypercholesterolemia, unspecified
== END 2024-07-03 09:39 | disposition home or self-care (01) ==
LOC: HO.HMCH 08:58
PROVIDERS: PCP Internal Medicine; Visit Provider Internal Medicine
DX: E78.2 Mixed hyperlipidemia (principal); R79.89 Other specified abnormal findings of blood chemistry; R73.01 Impaired fasting glucose; E55.9 Vitamin D deficiency, unspecified; M51.360 Other intervertebral disc degeneration, lumbar region with discogenic back pain only; K59.00 Constipation, unspecified; E66.3 Overweight; Z23 Encounter for immunization

== ENCOUNTER → 2024-07-03 08:57 | Outpatient (BNVA) | payer BC, MEDICAID, SELFPAY | PROVIDERS: PCP Internal Medicine; Visit Provider Internal Medicine | DX: E78.2 Mixed hyperlipidemia (principal); R79.89 Other specified abnormal findings of blood chemistry; R73.01 Impaired fasting glucose; E55.9 Vitamin D deficiency, unspecified; M51.360 Other intervertebral disc degeneration, lumbar region with discogenic back pain only; K59.00 Constipation, unspecified; E66.3 Overweight; Z68.28 Body mass index [BMI] 28.0-28.9, adult; Z28.21 Immunization not carried out because of patient refusal | CPT/HCPCS: 90471; 96127 ==

== ENCOUNTER 2024-07-04 08:23 | Outpatient (REF) | payer BC, MEDICAID, SELFPAY ==
[2024-07-04 08:43] LABS: MANUAL DIFF FLAG NO
[2024-07-04 09:10] LABS: Basophils Percent Auto 0.6 % (0-2); Eosinophils Absolute Auto 0.1 X10*3/uL (0.0-0.4); Eosinophils Percent Auto 1.4 % (0-4); Hematocrit 48.9 % (42.0-52.0); Hemoglobin 17.3 g/dl (14.0-18.0); Imm Gran Abs Auto 0.01 X10*3/uL (0.00-0.03); Imm Gran Pct Auto 0.1 % (0.0-0.4); Lymphocytes Absolute Auto 3.2 X10*3/uL (1.2-4.9); Lymphocytes Percent Auto 45.2 % (20-40); Mean Corpuscular HGB Conc 35.4 g/dl (31.0-36.0); Mean Corpuscular Hemoglobin 30.6 pg (27.0-33.0); Mean Corpuscular Volume 86.4 fL (80.0-98.0); Mean Platelet Volume 10.3 fL (9.4-12.4); Monocytes Absolute Auto 0.4 X10*3/uL (0.1-1.2); Monocytes Percent Auto 6.2 % (2-11); Neutrophils Absolute Auto 3.3 x10*3/uL (2.0-8.3); Neutrophils Percent Auto 46.5 % (45-73); Platelet Count 225 X10*3/uL (160-400); Red Blood Count 5.66 X10*6/uL (4.60-5.80); Red Cell Distribution Width 13.4 % (11.0-16.0); White Blood Count 7.2 X10*3/uL (4.8-10.8)
[2024-07-04 09:18] LABS: Estimated Average Glucose 108 mg/dL; Hemoglobin A1C 153.2296 umol/L; Hemoglobin A1c % 5.4 % (<6.0); Total Hemoglobin (HGBA1C) 4291.1993 umol/L
[2024-07-04 10:23] LABS: Alanine Aminotransferase 72 U/L (0-40); Albumin Level 4.5 g/dL (3.5-5.0); Alkaline Phosphatase 75 U/L (39-117); Anion Gap 13 (12-20); Aspartate Amino Transferase 39 U/L (5-37); Bilirubin Total 0.8 mg/dL (0.0-1.0); Blood Urea Nitrogen 15 mg/dL (9-16); Calcium 9.4 mg/dL (8.4-10.2); Carbon Dioxide 27 mmol/L (22-29); Chloride 104 mmol/L (96-108); Cholesterol 312 mg/dL (<200); Estimated Glomerular Filt Rate > 60; Glucose Fasting 105 mg/dL (60-99); HDL Cholesterol 46 mg/dL (>40); Sodium 140 mmol/L (135-145); Total Protein 7.7 g/dL (6.5-8.0); Triglycerides 513 mg/dL (<150)
[2024-07-04 10:38] LABS: Vitamin D 25-OH Total 23.6 ng/mL (>30)
== END 2024-07-04 08:24 | disposition home or self-care (01) ==
LOC: HO.LAB 08:23
PROVIDERS: PCP Internal Medicine; Visit Provider Internal Medicine
DX: E78.00 Pure hypercholesterolemia, unspecified (principal); E55.9 Vitamin D deficiency, unspecified; E11.9 Type 2 diabetes mellitus without complications; D64.9 Anemia, unspecified
CPT/HCPCS: 36415; 80053; 80061; 82306; 83036; 85025

== ENCOUNTER 2024-07-05 09:41 | Outpatient (REF) | payer BC, MEDICAID, SELFPAY ==
[2024-07-05 10:06] LABS: Appearance Urine Clear; Color Urine Yellow; Glucose Urine UA Negative (Negative); Leukocyte Esterase Urine Negative (Negative); Nitrite Urine Negative (Negative); PH 5.5 (5.0-9.0); Specific Gravity - Urine 1.025 (1.005-1.025); Urine Blood Negative (Negative); Urine Ketones Negative (Negative); Urine Protein Negative (Neg-Trace)
== END 2024-07-05 09:42 | disposition home or self-care (01) ==
LOC: HO.LNP 09:41
PROVIDERS: Visit Provider Internal Medicine
DX: R30.0 Dysuria (principal)
CPT/HCPCS: 81003

== ENCOUNTER 2024-10-23 10:29 | Outpatient (AMB) | payer BC, MEDICAID, SELFPAY ==
--- NOTE | 2024-10-23 10:29 | MHC.PC.OV ---
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 Accompanied by: Spouse Allergies Penicillins [PENICILLINS] Allergy (Unknown, Verified 10/23/24 11:03) RASH Medication List - Last Reconciled 10/23/24 by Rashaun Murphy MD cholecalciferol (vitamin D3) 50 mcg PO DAILY 90 days Tobacco use date assessed: 10/23/24 Dental Screening Dental Screen Date: 10/23/24 Did you have a dental visit in the last 12 months?: Yes Did you have a dental problem in the last 6 months where you did not have access to dental care?: No Was dental information given to patient?: Patient has dentist HPI hyperlipidemia HPI Details Patient's follow-up visit / consultation today is done over the phone - this is a Telehealth visit Patient's current medications have been reviewed and verified with patient and / or caregiver / proxy and have been updated accordingly in the medication list Patient states that he currently feels okay Is wondering how he did on his labs done recently - states that he had them done not too long ago but he is advised that the most recent labs he had done were the ones he went for the day after his last visit in June 2024 and there are no other more recent labs in his chart/file He was supposed to have some labs done again prior to his appointment today but it looks like he was not able to do so as his orders are still pending/active in his file Patient states that he already ate this morning and can go and get these done tomorrow morning He denies any headaches or dizziness Denies any chest pains, no SOB No nausea/vomiting, no abdominal pain No change in bowel habits noted [facility] Medical History (Updated 10/23/24 @ 11:52 by Rashaun Murphy MD) Lumbar degenerative disc disease Vitamin D deficiency Impaired fasting glucose Elevated LFTs Mixed hyperlipidemia Marijuana smoker Overweight (BMI 25.0-29.9) Surgical History No significant past surgical history Family History Maternal Grandmother Diabetes mellitus Paternal Grandmother Diabetes mellitus Social History Housing: Apartment Alcohol intake: current Alcohol intake frequency: a few times a week Alcohol type: beer Patient Tobacco Use Status: Former Tobacco user Tobacco use type: Cigarette e-Cigarette/Vaping Use: Never Used Second Hand Smoke Exposure: Yes Substance Use Type: Marijuana service: No Current occupational status: employed Cognitive needs: No Hearing needs: No Vision needs: No Questionnaire PHQ-9 Over the last 2 weeks, how often have you been bothered by any of the following problems? 1. Little interest or pleasure in doing things: not at all 2. Feeling down, depressed, or hopeless: not at all 3. Trouble falling or staying asleep, or sleeping too much: not at all 4. Feeling tired or having little energy: not at all 5. Poor appetite or overeating: not at all 6. Feeling bad about yourself - or that you are a failure or have let yourself or your family down: not at all 7. Trouble concentrating on things, such as reading the newspaper or watching television: not at all 8. Moving or speaking so slowly that other people could have noticed. Or the opposite - being so fidgety or restless that you have been moving around a lot more than usual: not at all 9. Thoughts that you would be better off or of hurting yourself in some way: not at all Total score: 0 Depression Screening Interpretation: Negative Depression Screening Done: Yes 80813 - PHQ-9 Billing: Yes Source: Developed by Drs. Alexy Mayberry, Roro Fair, Chato Veras and colleagues, with an educational ralph from [employer]. Thrive Questionnaire Date Thrive assessed: 10/23/24 I am a: Patient What is your living situation today?: I have a steady place to live Within the past 12 months, did the food you bought not last and you didn't have the money to get more?: Never true Within the past 12 months, did you worry whether your food would run out before you got money to buy more?: Never true Do you have trouble paying for medicines?: No Do you have trouble getting transportation to medical appointments?: No Do you have trouble paying your heating and electricity bill?: No Do you have trouble taking care of your child, family member or friend?: No Do you have trouble with day-to-day activities such as bathing, preparing meals, shopping, managing finances, etc.?: No Are you currently unemployed and looking for a job?: No Are you interested in more education?: No Please select the resources that you would like help with: None Currently or been in a relationship where the following occur: No concerns reported THRIVE Score: 0 AUDIT C Alcohol Use Questionnaire (AUDIT-C) 1. How often do you have a drink containing alcohol?: 2-4 times a month 2. How many drinks containing alcohol do you have on a typical day when you are drinking?: 1 or 2 3. How often do you have six or more drinks on one occasion?: Never Total Score: 2 Score Reviewed/Action Taken: Yes MICHELLE-7 AMB Questionnaire MICHELLE-7 Date MICHELLE - 7 assessed: 10/23/24 Feeling nervous, anxious, or on edge: 0 = Not at all Not being able to stop or control worryin = Not at all Worrying too much about different things: 0 = Not at all Trouble relaxin = Not at all Being so restless that it is hard to sit still: 0 = Not at all Becoming easily annoyed or irritable: 0 = Not at all Feeling afraid as if something awful might happen: 0 = Not at all Total MICHELLE-7 score (0-4 normal; 5-9 mild; 10-14 moderate; 15-21 severe): 0 Source: Developed by Drs. Alexy Mayberry, Roro Fair, Chato Veras and colleagues, with an educational ralph from [employer]. Review of Systems Const Denies chills, Denies fatigue, Denies fever(s) and Denies headache(s) ENT Denies dysphagia, Denies dizziness, Denies otalgia, Denies headache(s), Denies neck pain, Denies odynophagia and Denies sore throat Card Denies chest pain, Denies palpitations and Denies dyspnea Resp Denies chest congestion, Denies cough and Denies dyspnea GI Denies abdominal pain, Denies constipation, Denies dysphagia, Denies heartburn, Denies diarrhea, Denies nausea, Denies odynophagia and Denies vomiting Denies dysuria, Denies nocturia and Denies urinary frequency Musc Reports back pain (on and off, over the lower back) and Denies neck pain Skin/Breast Denies rash Neuro Denies dizziness and Denies headache(s) Endo Denies fatigue and Denies palpitations Physical exam (Primary Care) Vital Signs: Physical examination is not performed as visit / consultation today is done over the phone - Telehealth visit All physical findings indicated here, if present, are as per patient's and / or caregivers / proxy's report Tobacco/Smoking Status: Tobacco use Status Tobacco use date assessed 10/23/24 10/23/24 10:31 Patient Tobacco Use Status Former Tobacco user 10/23/24 10:31 Tobacco use type Cigarette 10/23/24 10:31 e-Cigarette/Vaping Use Never Used 10/23/24 10:31 PHQ-9: PHQ-9 Score PHQ-9: Total score 0 10/23/24 10:31 Depression Screening Interpretation: Negative Thrive Assessment: Date of Thrive Assessment Date Thrive assessed 10/23/24 10/23/24 10:31 Currently or been in a relationship where the following occur: No concerns reported Telehealth Telehealth Telehealth Platform: Telephone Location of provider rendering services: practice address Location of patient: address on file Patient Identification confirmed using: Name, : Yes Telehealth method: voice only Patient verbally consented to treatment: Yes Patient verbally consented to billing insurance company: Yes Patient informed of any privacy concerns related to visit: Yes Minutes spent on Phone/Video with Pt.: 22 Results Reviewed Results Reviewed: Laboratory Tests 12/01/23 07/04/24 07/05/24 09:32 08:41 07:30 WBC 7.2 Hgb 17.3 Hct 48.9 Plt Count 225 Sodium 140 Potassium 4.0 Creatinine 1.09 Estimated GFR > 60 Fasting Glucose 105 H Hemoglobin A1c % 5.4 Calcium 9.4 AST 39 H ALT 72 H Triglycerides 264 H 513 H Cholesterol 315 H 312 H LDL Cholesterol, Calc 218 H TNP HDL Cholesterol 45 46 25-OH Vitamin D Total 23.6 L Ur Specific [place] 1.025 Urine Protein Negative Urine Glucose (UA) Negative Urine Blood Negative Urine Nitrite Negative Ur Leukocyte Esterase Negative Coding Level of Care Code Tele Est Pt Level 4 (36338) Diagnoses Mixed hyperlipidemia E78.2 Elevated LFTs R79.89 Impaired fasting glucose R73.01 Vitamin D deficiency E55.9 Degeneration of intervertebral disc of lumbar region with discogenic back pain M51.360 Disc-related pain type: discogenic back pain only Constipation, unspecified constipation type K59.00 Constipation type: unspecified constipation type Overweight (BMI 25.0-29.9) E66.3 Additional Codes PHQ-9 - 51433 - PHQ-9 Billing: Yes ([id number]) Assessment & Plan Assessment & Plan (1) Mixed hyperlipidemia: Code(s): E78.2 - Mixed hyperlipidemia Category: Medical Plan: Reinforced low cholesterol diet Patient was again not able to get his previously ordered follow up labs done prior to his appointment today - states that he will try to get his labs done tomorrow morning He is advised that his cholesterol levels back in June 2024 were higher than previous, especially his serum triglyceride level which was at 513 mg/dl at the time He is reminded of our previous discussion last year that if he cannot get his cholesterol numbers improved significantly at this time with diet modification alone, then we will need to consider starting him on some Rx to help him get his numbers lower We will wait and see how his numbers come back when he gets his labs done tomorrow and decide from there Will again have him recheck his labs and fasting lipids in 3 months for follow up and he is reminded to get these done JUST BEFORE he comes in for his appointment so we are not playing catch up all the time with his lab results (2) Elevated LFTs: Code(s): R79.89 - Other specified abnormal findings of blood chemistry Category: Medical Plan: Patient is again cautioned that his LFTs were elevated on his previous labs (likely due to steatohepatitis) and they remained elevated when they were last rechecked in June 2024 He is advised that if his LFTs continue to stay high, then he will need to get an abdominal US for further evaluation - we will see how his numbers are once he gets his labs done tomorrow He had the same issue a few years ago in 2020 and he admits to drinking alcohol often - he has been advised to try cutting back on his alcohol intake at his last visit Patient states that he has practically stopped drinking alcohol since his last visit We have also reminded him to avoid taking any Tylenol-containing meds as much as possible and that losing some weight can also help with his LFTs We will continue to monitor his LFTs regularly (3) Impaired fasting glucose: Code(s): R73.01 - Impaired fasting glucose Category: Medical Plan: His FBS was again slightly elevated on his previous labs at 104 mg/dl but his HgbA1c was normal then at 5.4% Reinforced low calorie/low carb diet Will recheck his FBS and HgbA1c again in 3 months for follow up (4) Vitamin D deficiency: Code(s): E55.9 - Vitamin D deficiency, unspecified Category: Medical Plan: Continue Vitamin D3 2000 units QD (5) Lumbar degenerative disc disease: Code(s): M51.36 - Other intervertebral disc degeneration, lumbar region Category: Medical Qualifiers: Disc-related pain type: discogenic back pain only Qualified Code(s): M51.360 - Other intervertebral disc degeneration, lumbar region with discogenic back pain only Plan: Reinforced activity and weight-lifting restrictions to avoid aggravating his lower back Lumbar spine x-rays done back in 2020 revealed (+) findings consistent with mild degenerative disc disease at L5-S1 (6) Constipation: Code(s): K59.00 - Constipation, unspecified Category: Medical Qualifiers: Constipation type: unspecified constipation type Qualified Code(s): K59.00 - Constipation, unspecified Plan: Patient states that his abdominal symptoms have improved somewhat from previous with increase his oral fluid and dietary fiber intake Abdominal x-rays done last year revealed findings suggestive of constipation - (+) moderate amount of stool in the colon, with gas scattered throughout the right and transverse colon Continue OTC stool softeners as needed (7) Overweight (BMI 25.0-29.9): Code(s): E66.3 - Overweight Category: Medical Plan: Reinforced diet/exercise as tolerated/lose weight Plan Follow up in 3 months Orders: Orders Complete Blood Count Auto Diff 3 Months D64.9 - Anemia, unspecified Lipid Panel 3 Months E78.00 - Pure hypercholesterolemia, unspecified UA CC w/rflx Micro + Cult 3 Months R30.0 - Dysuria Comprehensive [place]. Panel Fast 3 Months E78.00 - Pure hypercholesterolemia, unspecified TSH reflex Free T4 3 Months E78.00 - Pure hypercholesterolemia, unspecified Hemoglobin A1c 3 Months R73.01 - Impaired fasting glucose
== END 2024-10-23 11:25 | disposition home or self-care (01) ==
LOC: HO.HMCH 10:29
PROVIDERS: PCP Internal Medicine; Visit Provider Internal Medicine
DX: E78.2 Mixed hyperlipidemia (principal); E66.3 Overweight; R79.89 Other specified abnormal findings of blood chemistry; R73.01 Impaired fasting glucose; E55.9 Vitamin D deficiency, unspecified; M51.360 Other intervertebral disc degeneration, lumbar region with discogenic back pain only; K59.00 Constipation, unspecified

== ENCOUNTER → 2024-10-23 10:29 | Outpatient (BNVA) | payer BC, MEDICAID, SELFPAY | PROVIDERS: PCP Internal Medicine; Visit Provider Internal Medicine | DX: E78.2 Mixed hyperlipidemia (principal); R79.89 Other specified abnormal findings of blood chemistry; R73.01 Impaired fasting glucose; E55.9 Vitamin D deficiency, unspecified; M51.360 Other intervertebral disc degeneration, lumbar region with discogenic back pain only; K59.00 Constipation, unspecified; E66.3 Overweight; Z79.899 Other long term (current) drug therapy | CPT/HCPCS: 96127 ==

== ENCOUNTER 2025-03-03 08:17 | Outpatient (REF) | payer BC, MEDICAID, SELFPAY ==
[2025-03-03 08:37] LABS: MANUAL DIFF FLAG NO
[2025-03-03 08:53] LABS: Hematocrit 47.9 % (42.0-52.0); Hemoglobin 16.8 g/dl (14.0-18.0); Imm Gran Abs Auto 0.01 X10*3/uL (0.00-0.03); Imm Gran Pct Auto 0.1 % (0.0-0.4); Lymphocytes Absolute Auto 3.4 X10*3/uL (1.2-4.9); Mean Corpuscular HGB Conc 35.1 g/dl (31.0-36.0); Mean Corpuscular Hemoglobin 30.3 pg (27.0-33.0); Mean Corpuscular Volume 86.5 fL (80.0-98.0); NRBC Abs Auto 0.000 X10*3/uL (0.0-0.012); NRBC Pct Auto 0.0 /100WBC (0.0-0.2); Platelet Count 213 X10*3/uL (160-400); Red Blood Count 5.54 X10*6/uL (4.60-5.80); White Blood Count 6.9 X10*3/uL (4.8-10.8)
[2025-03-03 09:21] LABS: Hemoglobin A1C 161.1460 umol/L; Total Hemoglobin (HGBA1C) 4380.8056 umol/L
[2025-03-03 09:22] LABS: Appearance Urine Clear; Glucose Urine UA Negative (Negative); PH 5.5 (5.0-9.0); Specific Gravity - Urine 1.025 (1.005-1.025)
[2025-03-03 10:50] LABS: Alanine Aminotransferase 74 U/L (0-40); Albumin Level 4.5 g/dL (3.5-5.0); Alkaline Phosphatase 76 U/L (39-117); Anion Gap 11 (12-20); Aspartate Amino Transferase 39 U/L (5-37); Blood Urea Nitrogen 16 mg/dL (9-16); Calcium 9.0 mg/dL (8.4-10.2); Carbon Dioxide 28 mmol/L (22-29); Chloride 106 mmol/L (96-108); Cholesterol 299 mg/dL (<200); Estimated Glomerular Filt Rate > 60; HDL Cholesterol 45 mg/dL (>40); Potassium 3.9 mmol/L (3.3-5.1); Sodium 141 mmol/L (135-145); Total Protein 7.2 g/dL (6.5-8.0); Triglycerides 372 mg/dL (<150)
== END 2025-03-03 08:18 | disposition home or self-care (01) ==
LOC: HO.LAB 08:17
PROVIDERS: PCP Internal Medicine; Visit Provider Internal Medicine
DX: R30.0 Dysuria (principal); E78.00 Pure hypercholesterolemia, unspecified; R73.01 Impaired fasting glucose; D64.9 Anemia, unspecified
CPT/HCPCS: 36415; 80053; 80061; 81003; 83036; 84443; 85025

== ENCOUNTER 2025-03-04 12:41 | Outpatient (AMB) | payer BC, MEDICAID, SELFPAY ==
[2025-03-04 12:54] VITALS: BP 122/80; PULSE 74; O2SAT 95; BMI 28.6
--- NOTE | 2025-03-04 12:54 | MHC.PC.OV ---
Vital Signs 03/04/25 12:54 Height 5 ft 11 in Weight 205 lb 6 oz BMI 28.6 BP 122/80 Blood Pressure Location Lt brachial Position Sitting Pulse 74 Pulse Source Pulse Oximeter Pulse Oximetry (%) 95 Oxygen Delivery Method Room Air Intake Visit Reasons: 3 month f/u Tin Worker Required: No Accompanied by: Self / Same As Patient Allergies Penicillins (PENICILLINS) Allergy (Unknown, Verified 03/04/25 13:37) RASH Medication List - Last Reconciled 03/04/25 by Rashaun Murphy MD cholecalciferol (vitamin D3) 50 mcg PO DAILY 90 days Tobacco use date assessed: 03/04/25 Dental Screening Dental Screen Date: 03/04/25 Did you have a dental visit in the last 12 months?: Yes Did you have a dental problem in the last 6 months where you did not have access to dental care?: No Was dental information given to patient?: Patient has dentist HPI 3 month f/u HPI Details Patient comes in today for his follow-up visit States that he feels okay He denies any headaches or dizziness Denies any chest pain, no shortness of breath No nausea/vomiting, no abdominal pain No change in bowel habits noted He had his follow-up labs done yesterday - to discuss his results [facility] Medical History Lumbar degenerative disc disease Vitamin D deficiency Impaired fasting glucose Elevated LFTs Mixed hyperlipidemia Marijuana smoker Overweight (BMI 25.0-29.9) Surgical History No significant past surgical history Family History Maternal Grandmother Diabetes mellitus Paternal Grandmother Diabetes mellitus Social History Housing: Apartment Alcohol intake: current Alcohol intake frequency: a few times a week Alcohol type: beer Patient Tobacco Use Status: Former Tobacco user Tobacco use type: Cigarette e-Cigarette/Vaping Use: Never Used Second Hand Smoke Exposure: Yes Substance Use Type: Marijuana service: No Current occupational status: employed Cognitive needs: No Hearing needs: No Vision needs: No Questionnaire PHQ-9 Over the last 2 weeks, how often have you been bothered by any of the following problems? 1. Little interest or pleasure in doing things: not at all 2. Feeling down, depressed, or hopeless: not at all 3. Trouble falling or staying asleep, or sleeping too much: not at all 4. Feeling tired or having little energy: not at all 5. Poor appetite or overeating: not at all 6. Feeling bad about yourself - or that you are a failure or have let yourself or your family down: not at all 7. Trouble concentrating on things, such as reading the newspaper or watching television: not at all 8. Moving or speaking so slowly that other people could have noticed. Or the opposite - being so fidgety or restless that you have been moving around a lot more than usual: not at all 9. Thoughts that you would be better off or of hurting yourself in some way: not at all Total score: 0 Depression Screening Interpretation: Negative Depression Screening Done: Yes 43475 - PHQ-9 Billing: Yes Source: Developed by Drs. Alexy Mayberry, Roro Fair, Chato Veras and colleagues, with an educational ralph from [employer]. Thrive Questionnaire Date Thrive assessed: 03/04/25 I am a: Patient What is your living situation today?: I have a steady place to live Within the past 12 months, did the food you bought not last and you didn't have the money to get more?: I choose not to answer this question Within the past 12 months, did you worry whether your food would run out before you got money to buy more?: I choose not to answer this question Do you have trouble paying for medicines?: Yes Do you have trouble getting transportation to medical appointments?: No Do you have trouble paying your heating and electricity bill?: Yes Do you have trouble taking care of your child, family member or friend?: No Do you have trouble with day-to-day activities such as bathing, preparing meals, shopping, managing finances, etc.?: No Are you currently unemployed and looking for a job?: Yes Are you interested in more education?: No Please select the resources that you would like help with: None Currently or been in a relationship where the following occur: I choose not to answer THRIVE Score: 1 AUDIT C Alcohol Use Questionnaire (AUDIT-C) 1. How often do you have a drink containing alcohol?: Monthly or less 2. How many drinks containing alcohol do you have on a typical day when you are drinking?: 3 or 4 3. How often do you have six or more drinks on one occasion?: Weekly Total Score: 5 Score Reviewed/Action Taken: Yes MICHELLE-7 AMB Questionnaire MICHELLE-7 Date MICHELLE - 7 assessed: 03/04/25 Feeling nervous, anxious, or on edge: 0 = Not at all Not being able to stop or control worryin = Not at all Worrying too much about different things: 0 = Not at all Trouble relaxin = Not at all Being so restless that it is hard to sit still: 0 = Not at all Becoming easily annoyed or irritable: 0 = Not at all Feeling afraid as if something awful might happen: 0 = Not at all Total MICHELLE-7 score (0-4 normal; 5-9 mild; 10-14 moderate; 15-21 severe): 0 Source: Developed by Drs. Alexy Mayberry, Roro Fair, Chato Veras and colleagues, with an educational ralph from [employer]. Review of Systems Const Denies chills, Denies fatigue, Denies fever(s) and Denies headache(s) ENT Denies dysphagia, Denies dizziness, Denies otalgia, Denies headache(s), Denies neck pain, Denies odynophagia and Denies sore throat Card Denies chest pain, Denies palpitations and Denies dyspnea Resp Denies chest congestion, Denies cough and Denies dyspnea GI Denies abdominal pain, Denies constipation, Denies dysphagia, Denies heartburn, Denies diarrhea, Denies nausea, Denies odynophagia and Denies vomiting Denies difficulty urinating, Denies dysuria, Denies nocturia and Denies urinary frequency Musc Reports back pain (on and off, over the lower back) and Denies neck pain Skin/Breast Denies rash Neuro Denies dizziness and Denies headache(s) Endo Denies fatigue and Denies palpitations Physical exam (Primary Care) Vital Signs: Last Vital Signs Pulse 74 03/04/25 12:54 BP 122/80 03/04/25 12:54 Pulse Ox 95 03/04/25 12:54 Oxygen Delivery Method Room Air 03/04/25 12:54 BMI result Body Mass Index 28.6 Tobacco/Smoking Status: Tobacco use Status Tobacco use date assessed 03/04/25 03/04/25 12:57 Patient Tobacco Use Status Former Tobacco user 03/04/25 12:57 Tobacco use type Cigarette 03/04/25 12:57 e-Cigarette/Vaping Use Never Used 03/04/25 12:57 PHQ-9: PHQ-9 Score PHQ-9: Total score 0 03/04/25 13:37 Depression Screening Interpretation: Negative Thrive Assessment: Date of Thrive Assessment Date Thrive assessed 03/04/25 03/04/25 12:57 Currently or been in a relationship where the following occur: I choose not to answer Const General: no acute distress and alert HENMT Ears: TM's normal bilaterally and EAC's normal Throat: Yes posterior oropharynx normal and Yes tonsils normal (no TP congestion) Neck Neck: Yes supple and No lymphadenopathy Thyroid: Thyroid normal Resp Auscultation: clear to auscultation bilaterally, no rales and no wheezes Cardio Rate: regular rate Rhythm: regular rhythm Heart sounds: no murmurs GI Palpation (GI): Soft to palpation and nontender Auscultation: normal bowel sounds General: Yes no CVA tenderness Back/Spine/Pelvis Back: no CVA tenderness Thoracic/Lumbar Spine: lumbar spinal tenderness (mild) Skin Rashes: no rashes Extrem General: Yes no clubbing, cyanosis or edema Results Reviewed Results Reviewed: Laboratory Tests 12/01/23 03/03/25 03/03/25 09:32 08:30 08:35 WBC 6.9 Hgb 16.8 Hct 47.9 Plt Count 213 Sodium 141 Potassium 3.9 Creatinine 1.21 Estimated GFR > 60 Fasting Glucose 107 H Hemoglobin A1c % 5.5 Calcium 9.0 GGT 82 H AST 39 H ALT 74 H Triglycerides 372 H Cholesterol 299 H LDL Cholesterol, Calc 180 H HDL Cholesterol 45 TSH 2.55 Ur Specific [place] 1.025 Urine Protein Negative Urine Glucose (UA) Negative Urine Blood Negative Urine Nitrite Negative Ur Leukocyte Esterase Negative Coding Level of Care Code Est Pt Level 4 (77892) Diagnoses Mixed hyperlipidemia E78.2 Elevated LFTs R79.89 Impaired fasting glucose R73.01 Vitamin D deficiency E55.9 Degeneration of intervertebral disc of lumbar region with discogenic back pain M51.360 Disc-related pain type: discogenic back pain only Constipation, unspecified constipation type K59.00 Constipation type: unspecified constipation type Overweight (BMI 25.0-29.9) E66.3 Additional Codes PHQ-9 - 06193 - PHQ-9 Billing: Yes ([id number]) Assessment & Plan Assessment & Plan (1) Mixed hyperlipidemia: Code(s): E78.2 - Mixed hyperlipidemia Category: Medical Plan: Results of his labs done yesterday reviewed and discussed with patient - patient is advised that his serum triglyceride level has improved significantly from previous although it is still elevated His LDL cholesterol is also elevated at 180 mg/dL Reinforced low cholesterol diet He is reminded again that if he cannot get his cholesterol numbers improved significantly and adequately with diet modification alone, then we will need to consider starting him on cholesterol-lowering Rx Will have him recheck his labs and fasting lipids again in 4 months for follow up (2) Elevated LFTs: Code(s): R79.89 - Other specified abnormal findings of blood chemistry Category: Medical Plan: He is cautioned that his LFTs are still elevated on his recent labs (likely due to steatosis) He had the same issue a few years ago in 2020 and he admitted to drinking alcohol often - he has been advised to try cutting back on his alcohol intake and patient states that he has stopped drinking alcohol for almost a year now We have also reminded him to avoid taking any Tylenol-containing meds as much as possible and that losing some weight can also help with his LFTs We will continue to monitor his LFTs regularly (3) Impaired fasting glucose: Code(s): R73.01 - Impaired fasting glucose Category: Medical Plan: His FBS is still slightly elevated on his recent labs at 107 mg/dl; HgbA1c remains normal at 5.5% Reinforced low calorie/low carb diet Will recheck his FBS and HgbA1c again in 4 months for follow up (4) Vitamin D deficiency: Code(s): E55.9 - Vitamin D deficiency, unspecified Category: Medical Plan: Continue Vitamin D3 2000 units QD (5) Lumbar degenerative disc disease: Code(s): M51.36 - Other intervertebral disc degeneration, lumbar region Category: Medical Qualifiers: Disc-related pain type: discogenic back pain only Qualified Code(s): M51.360 - Other intervertebral disc degeneration, lumbar region with discogenic back pain only Plan: Reinforced activity and weight-lifting restrictions to avoid aggravating his lower back Lumbar spine x-rays done back in 2020 revealed (+) findings consistent with mild degenerative disc disease at L5-S1 (6) Constipation: Code(s): K59.00 - Constipation, unspecified Category: Medical Qualifiers: Constipation type: unspecified constipation type Qualified Code(s): K59.00 - Constipation, unspecified Plan: Patient states that his abdominal symptoms have improved from previous with increase his oral fluid and dietary fiber intake Abdominal x-rays done last year revealed findings suggestive of constipation - (+) moderate amount of stool in the colon, with gas scattered throughout the right and transverse colon Continue OTC stool softeners as needed (7) Overweight (BMI 25.0-29.9): Code(s): E66.3 - Overweight Category: Medical Plan: Reinforced diet/exercise as tolerated/lose weight Plan Follow up in 4 months Orders: Orders Lipid Panel 4 Months E78.00 - Pure hypercholesterolemia, unspecified Hemoglobin A1c 4 Months R73.01 - Impaired fasting glucose TSH reflex Free T4 4 Months E78.00 - Pure hypercholesterolemia, unspecified UA CC w/rflx Micro + Cult 4 Months R30.0 - Dysuria Vitamin D 25-OH Total 4 Months E55.9 - Vitamin D deficiency, unspecified Comprehensive [place]. Panel Fast 4 Months E78.00 - Pure hypercholesterolemia, unspecified
== END 2025-03-04 13:41 | disposition home or self-care (01) ==
LOC: HO.HMCH 12:42
PROVIDERS: PCP Internal Medicine; Visit Provider Internal Medicine
DX: E78.2 Mixed hyperlipidemia (principal); R79.89 Other specified abnormal findings of blood chemistry; R73.01 Impaired fasting glucose; E55.9 Vitamin D deficiency, unspecified; M51.360 Other intervertebral disc degeneration, lumbar region with discogenic back pain only; K59.00 Constipation, unspecified; E66.3 Overweight

== ENCOUNTER → 2025-03-04 12:41 | Outpatient (BNVA) | payer BC, MEDICAID, SELFPAY | PROVIDERS: PCP Internal Medicine; Visit Provider Internal Medicine | DX: E78.2 Mixed hyperlipidemia (principal); R79.89 Other specified abnormal findings of blood chemistry; R73.01 Impaired fasting glucose; E55.9 Vitamin D deficiency, unspecified; M51.360 Other intervertebral disc degeneration, lumbar region with discogenic back pain only; K59.00 Constipation, unspecified; E66.3 Overweight; Z68.28 Body mass index [BMI] 28.0-28.9, adult | CPT/HCPCS: 96127 ==

== ENCOUNTER 2025-07-09 09:41 | Outpatient (REF) | payer BC, MEDICAID, SELFPAY ==
[2025-07-09 10:56] LABS: Alanine Aminotransferase 72 U/L (0-40); Albumin Level 4.7 g/dL (3.5-5.0); Alkaline Phosphatase 86 U/L (39-117); Anion Gap 11 (12-20); Aspartate Amino Transferase 40 U/L (5-37); Blood Urea Nitrogen 13 mg/dL (9-16); Calcium 9.7 mg/dL (8.4-10.2); Carbon Dioxide 29 mmol/L (22-29); Chloride 105 mmol/L (96-108); Cholesterol 292 mg/dL (<200); Estimated Glomerular Filt Rate > 60; HDL Cholesterol 40 mg/dL (>40); Potassium 4.0 mmol/L (3.3-5.1); Sodium 141 mmol/L (135-145); Total Protein 7.4 g/dL (6.5-8.0); Triglycerides 421 mg/dL (<150)
[2025-07-09 11:28] LABS: Appearance Urine Clear; Glucose Urine UA Negative (Negative); PH 5.5 (5.0-9.0); Specific Gravity - Urine 1.020 (1.005-1.025)
== END 2025-07-09 09:42 | disposition home or self-care (01) ==
LOC: HO.LAB 09:41
PROVIDERS: PCP Internal Medicine; Visit Provider Internal Medicine
DX: R30.0 Dysuria (principal); R73.01 Impaired fasting glucose; E78.00 Pure hypercholesterolemia, unspecified; E55.9 Vitamin D deficiency, unspecified
CPT/HCPCS: 36415; 80053; 80061; 81003; 82306; 83036; 84443

== ENCOUNTER 2025-07-10 09:39 | Outpatient (AMB) | payer BC, MEDICAID, SELFPAY ==
[2025-07-10 09:45] VITALS: BP 120/92; PULSE 65; O2SAT 97; BMI 29.3
--- NOTE | 2025-07-10 09:45 | MHC.PC.OV ---
Vital Signs 07/10/25 09:45 Height 5 ft 11 in Weight 210 lb 4 oz BMI 29.3 BP 120/92 H Blood Pressure Location Lt brachial Position Sitting Pulse 65 Pulse Source Pulse Oximeter Pulse Oximetry (%) 97 Oxygen Delivery Method Room Air Intake Visit Reasons: 4mt f/u Gas Operator Required: No Accompanied by: Self / Same As Patient Allergies Penicillins (PENICILLINS) Allergy (Unknown, Verified 07/10/25 10:30) RASH Medication List - Last Reconciled 07/10/25 by Rashaun Murphy MD cholecalciferol (vitamin D3) 50 mcg PO DAILY 90 days Tobacco use date assessed: 07/10/25 Dental Screening Dental Screen Date: 07/10/25 Did you have a dental visit in the last 12 months?: Yes Did you have a dental problem in the last 6 months where you did not have access to dental care?: No Was dental information given to patient?: Patient has dentist HPI 4mt f/u HPI Details Patient comes in today for his follow up visit States that he feels okay He denies any headaches or dizziness Denies any chest pains, no SOB No nausea/vomiting, no abdominal pain No change in bowel habits noted He had his follow up labs done yesterday - to discuss his results PENDING SALE TO [facility] Medical History Lumbar degenerative disc disease Vitamin D deficiency Impaired fasting glucose Elevated LFTs Mixed hyperlipidemia Marijuana smoker Overweight (BMI 25.0-29.9) Surgical History No significant past surgical history Family History Maternal Grandmother Diabetes mellitus Paternal Grandmother Diabetes mellitus Social History Housing: Apartment Alcohol intake: current Alcohol intake frequency: a few times a week Alcohol type: beer Patient Tobacco Use Status: Former Tobacco user Tobacco use type: Cigarette e-Cigarette/Vaping Use: Never Used Second Hand Smoke Exposure: Yes Substance Use Type: Marijuana service: No Current occupational status: employed Cognitive needs: No Hearing needs: No Vision needs: No Questionnaire PHQ-9 Over the last 2 weeks, how often have you been bothered by any of the following problems? 1. Little interest or pleasure in doing things: not at all 2. Feeling down, depressed, or hopeless: not at all 3. Trouble falling or staying asleep, or sleeping too much: not at all 4. Feeling tired or having little energy: not at all 5. Poor appetite or overeating: not at all 6. Feeling bad about yourself - or that you are a failure or have let yourself or your family down: not at all 7. Trouble concentrating on things, such as reading the newspaper or watching television: not at all 8. Moving or speaking so slowly that other people could have noticed. Or the opposite - being so fidgety or restless that you have been moving around a lot more than usual: not at all 9. Thoughts that you would be better off or of hurting yourself in some way: not at all Total score: 0 Depression Screening Interpretation: Negative Depression Screening Done: Yes 61451 - PHQ-9 Billing: Yes Source: Developed by Drs. Alexy Mayberry, Roro Fair, Chato Veras and colleagues, with an educational ralph from [employer]. Thrive Questionnaire Date Thrive assessed: 07/10/25 I am a: Patient What is your living situation today?: I have a steady place to live Within the past 12 months, did the food you bought not last and you didn't have the money to get more?: I choose not to answer this question Within the past 12 months, did you worry whether your food would run out before you got money to buy more?: I choose not to answer this question Do you have trouble paying for medicines?: Yes Do you have trouble getting transportation to medical appointments?: No Do you have trouble paying your heating and electricity bill?: Yes Do you have trouble taking care of your child, family member or friend?: No Do you have trouble with day-to-day activities such as bathing, preparing meals, shopping, managing finances, etc.?: No Are you currently unemployed and looking for a job?: Yes Are you interested in more education?: No Please select the resources that you would like help with: None Currently or been in a relationship where the following occur: I choose not to answer THRIVE Score: 1 AUDIT C Alcohol Use Questionnaire (AUDIT-C) 1. How often do you have a drink containing alcohol?: Monthly or less 2. How many drinks containing alcohol do you have on a typical day when you are drinking?: 3 or 4 3. How often do you have six or more drinks on one occasion?: Weekly Total Score: 5 Score Reviewed/Action Taken: Yes MICHELLE-7 AMB Questionnaire MICHELLE-7 Date MICHELLE - 7 assessed: 07/10/25 Feeling nervous, anxious, or on edge: 0 = Not at all Not being able to stop or control worryin = Not at all Worrying too much about different things: 0 = Not at all Trouble relaxin = Not at all Being so restless that it is hard to sit still: 0 = Not at all Becoming easily annoyed or irritable: 0 = Not at all Feeling afraid as if something awful might happen: 0 = Not at all Total MICHELLE-7 score (0-4 normal; 5-9 mild; 10-14 moderate; 15-21 severe): 0 Source: Developed by Drs. Alexy Mayberry, Roro Fair, Chato Veras and colleagues, with an educational ralph from [employer]. Review of Systems Const Denies chills, Denies fatigue, Denies fever(s) and Denies headache(s) ENT Denies dysphagia, Denies dizziness, Denies otalgia, Denies headache(s), Denies neck pain, Denies odynophagia and Denies sore throat Card Denies chest pain, Denies palpitations and Denies dyspnea Resp Denies chest congestion, Denies cough and Denies dyspnea GI Denies abdominal pain, Denies constipation, Denies dysphagia, Denies heartburn, Denies diarrhea, Denies nausea, Denies odynophagia and Denies vomiting Denies difficulty urinating, Denies dysuria, Denies nocturia and Denies urinary frequency Musc Reports back pain (on and off, over the lower back) and Denies neck pain Skin/Breast Denies rash Neuro Denies dizziness and Denies headache(s) Endo Denies fatigue and Denies palpitations Physical exam (Primary Care) Vital Signs: Last Vital Signs Pulse 65 07/10/25 09:45 BP 120/92 H 07/10/25 09:45 Pulse Ox 97 07/10/25 09:45 Oxygen Delivery Method Room Air 07/10/25 09:45 BMI result Body Mass Index 29.3 Tobacco/Smoking Status: Tobacco use Status Tobacco use date assessed 07/10/25 07/10/25 09:51 Patient Tobacco Use Status Former Tobacco user 07/10/25 09:51 Tobacco use type Cigarette 07/10/25 09:51 e-Cigarette/Vaping Use Never Used 07/10/25 09:51 PHQ-9: PHQ-9 Score PHQ-9: Total score 0 07/10/25 10:31 Depression Screening Interpretation: Negative Thrive Assessment: Date of Thrive Assessment Date Thrive assessed 07/10/25 07/10/25 09:51 Currently or been in a relationship where the following occur: I choose not to answer Const General: no acute distress and alert HENMT Ears: TM's normal bilaterally and EAC's normal Throat: Yes posterior oropharynx normal and Yes tonsils normal (no TP congestion) Neck Neck: Yes supple and No lymphadenopathy Thyroid: Thyroid normal Resp Auscultation: clear to auscultation bilaterally, no rales and no wheezes Cardio Rate: regular rate Rhythm: regular rhythm Heart sounds: no murmurs GI Palpation (GI): Soft to palpation and nontender Auscultation: normal bowel sounds General: Yes no CVA tenderness Back/Spine/Pelvis Back: no CVA tenderness Thoracic/Lumbar Spine: lumbar spinal tenderness (mild) Skin Rashes: no rashes Extrem General: Yes no clubbing, cyanosis or edema Results Reviewed Results Reviewed: Laboratory Tests 07/09/25 07/09/25 09:46 09:55 Sodium 141 Potassium 4.0 Creatinine 1.22 Estimated GFR > 60 Fasting Glucose 97 Hemoglobin A1c % 5.6 Calcium 9.7 D AST 40 H ALT 72 H Triglycerides 421 H Cholesterol 292 H LDL Cholesterol, Calc TNP HDL Cholesterol 40 L 25-OH Vitamin D Total 18.4 L TSH 2.23 Ur Specific [place] 1.020 Urine Protein Negative Urine Glucose (UA) Negative Urine Blood Negative Urine Nitrite Negative Ur Leukocyte Esterase Negative Coding Level of Care Code Est Pt Level 4 (32502) Diagnoses Mixed hyperlipidemia E78.2 Elevated LFTs R79.89 Impaired fasting glucose R73.01 Vitamin D deficiency E55.9 Lumbar degenerative disc disease M51.36 Constipation, unspecified constipation type K59.00 Constipation type: unspecified constipation type Overweight (BMI 25.0-29.9) E66.3 Additional Codes PHQ-9 - 62686 - PHQ-9 Billing: Yes ([id number]) Assessment & Plan Assessment & Plan (1) Mixed hyperlipidemia: Code(s): E78.2 - Mixed hyperlipidemia Category: Medical Plan: Results of his labs done yesterday reviewed and discussed with patient - patient is advised that his serum triglyceride level has increased again from previous His LDL cholesterol was also elevated at 180 mg/dL a few months ago Reinforced low cholesterol diet Will go ahead and start him on Fenofibrate 160 mg QD to at least help get his triglyceride level down first Will have him recheck his labs and fasting lipids again in 4 months for follow up (2) Elevated LFTs: Code(s): R79.89 - Other specified abnormal findings of blood chemistry Category: Medical Plan: Patient is cautioned that his LFTs are still elevated on his recent labs (likely due to steatosis) He had the same issue a few years ago in 2020 and he admitted to drinking alcohol often - patient states that he now only drinks 1 beer every so often and does not drink alcohol regularly anymore We have also reminded him to avoid taking any Tylenol-containing meds as much as possible and have advised him that losing some weight can also help get his LFTs down We will continue to monitor his LFTs regularly Will also include a liver fibrosis panel with his next labs for further evaluation (3) Impaired fasting glucose: Code(s): R73.01 - Impaired fasting glucose Category: Medical Plan: His FBS was normal on his recent labs at 97 mg/dl; HgbA1c remains normal at 5.6% Reinforced low calorie/low carb diet Will recheck his FBS and HgbA1c again in 4 months for follow up (4) Vitamin D deficiency: Code(s): E55.9 - Vitamin D deficiency, unspecified Category: Medical Plan: He is advised that his Vitamin D level is still low on his recent labs Continue Vitamin D3 2000 units QD - Rx refilled (5) Lumbar degenerative disc disease: Code(s): M51.36 - Other intervertebral disc degeneration, lumbar region Category: Medical Plan: Reinforced activity and weight-lifting restrictions to avoid aggravating his lower back Lumbar spine x-rays done back in 2020 revealed (+) findings consistent with mild degenerative disc disease at L5-S1 (6) Constipation: Code(s): K59.00 - Constipation, unspecified Category: Medical Qualifiers: Constipation type: unspecified constipation type Qualified Code(s): K59.00 - Constipation, unspecified Plan: Patient states that his abdominal symptoms have improved from previous with increase his oral fluid and dietary fiber intake Abdominal x-rays done last year revealed findings suggestive of constipation - (+) moderate amount of stool in the colon, with gas scattered throughout the right and transverse colon Continue OTC stool softeners as needed (7) Overweight (BMI 25.0-29.9): Code(s): E66.3 - Overweight Category: Medical Plan: Reinforced diet/exercise as tolerated/lose weight Plan To return in 4 months for his annual physical examination Orders: Orders Complete Blood Count Auto Diff 4 Months D64.9 - Anemia, unspecified TSH reflex Free T4 4 Months E78.00 - Pure hypercholesterolemia, unspecified, Z00.00 - Encounter for general adult medical examination without abnormal findings Hemoglobin A1c 4 Months R73.01 - Impaired fasting glucose Comprehensive [place]. Panel Fast 4 Months E78.00 - Pure hypercholesterolemia, unspecified Lipid Panel 4 Months E78.00 - Pure hypercholesterolemia, unspecified UA CC w/rflx Micro + Cult 4 Months R30.0 - Dysuria, Z00.00 - Encounter for general adult medical examination without abnormal findings Vitamin D 25-OH Total 4 Months E55.9 - Vitamin D deficiency, unspecified, Z00.00 - Encounter for general adult medical examination without abnormal findings Liver Fibrosis Pnl 4 Months R79.89 - Other specified abnormal findings of blood chemistry, Z00.00 - Encounter for general adult medical examination without abnormal findings Medications: New fenofibrate 160 mg PO DAILY 90 tabs 3RF 90 days Refilled cholecalciferol (vitamin D3) 50 mcg PO DAILY 90 caps 3RF 90 days E55.9 - Vitamin D deficiency, unspecified
== END 2025-07-10 10:38 | disposition home or self-care (01) ==
LOC: HO.HMCH 09:39
PROVIDERS: PCP Internal Medicine; Visit Provider Internal Medicine
DX: E78.2 Mixed hyperlipidemia (principal); R79.89 Other specified abnormal findings of blood chemistry; R73.01 Impaired fasting glucose; E55.9 Vitamin D deficiency, unspecified; M51.369 Other intervertebral disc degeneration, lumbar region without mention of lumbar back pain or lower extremity pain; K59.00 Constipation, unspecified; E66.3 Overweight

== ENCOUNTER → 2025-07-10 09:39 | Outpatient (BNVA) | payer BC, MEDICAID, SELFPAY | PROVIDERS: PCP Internal Medicine; Visit Provider Internal Medicine | DX: E78.2 Mixed hyperlipidemia (principal); R79.89 Other specified abnormal findings of blood chemistry; R73.01 Impaired fasting glucose; E55.9 Vitamin D deficiency, unspecified; M51.369 Other intervertebral disc degeneration, lumbar region without mention of lumbar back pain or lower extremity pain; K59.00 Constipation, unspecified; E66.3 Overweight; Z68.29 Body mass index [BMI] 29.0-29.9, adult | CPT/HCPCS: 96127 ==